=== PATIENT | male | born 1945 | race Caucasian/White ===

== ENCOUNTER 2018-09-04 16:46 | Emergency (ER) | payer MEDICARE, OTHER ==
[~2018-09-04] VITALS: Ht 185.4 cm; Wt 101.2 kg
[2018-09-04] MEDS ORDERED: CITRATE OF MAGNESIA 300ML BOTTLE PO ONE (17:15)
--- NOTE | 2018-09-04 17:38 | Diagnostic Imaging Report ---
Exam: Abdominal film Clinical History: abdominal pain Comparison: None. DISCUSSION: Frontal view of the abdomen shows a nonobstructive bowel gas pattern with mild amount of retained stool. No dilated, air-filled loops of bowel. No abnormal calcifications. No acute bone abnormality. Total hip arthroplasty. IMPRESSION: Nonobstructive bowel gas pattern. Signed by: Dr. Robinson Quiroz M.D. on 09/04/2018 5:35 PM
--- NOTE | 2018-09-04 19:00 | NUR ---
REPORT RECEIVED FROM MONTY BARR.
--- NOTE | 2018-09-04 19:08 | NUR ---
BEDSIDE BLADDER SCAN WAS PERFORMED AT THIS TIME. NOTED TO HAVE APPROX 100CC PER SONOGRAM. INFORMED SETPHANIE BRO AT THIS TIME, IBARRA BEING INSERTED AT THIS TIME BY STEPHANIE BRO.
--- NOTE | 2018-09-04 19:15 | NUR ---
700 CC OF CLEAR YELLOW URINE NOTED TO IBARRA AT THIS TIME.
[2018-09-04] MEDS ORDERED: MINERAL OIL 132 ML BTL PR ONE (19:30)
[2018-09-04] MEDS ORDERED: CITRATE OF MAGNESIA 300ML BOTTLE ONE (19:44)
--- NOTE | 2018-09-04 20:00 | NUR ---
PT REQUESTING FOOD AT THIS TIME, INFORMED THAT PER STEPHANIE BRO FOOD CAN BE GIVEN AFTER BOWEL MOVEMENT.
[2018-09-04 21:34] VITALS: BP 127/69
== END 2018-09-04 21:35 | disposition home or self-care (01) ==
LOC: ER 16:46
DX: K59.00 Constipation, unspecified (principal); R33.9 Retention of urine, unspecified; I10 Essential (primary) hypertension; I25.10 Atherosclerotic heart disease of native coronary artery without angina pectoris; I51.9 Heart disease, unspecified
CPT/HCPCS: 51700; 74018; 99283

== ENCOUNTER 2022-01-06 10:43 | Emergency (ER) | payer MEDICARE, OTHER ==
[~2022-01-06] VITALS: Ht 185.4 cm; Wt 98.9 kg
== END 2022-01-06 14:18 | disposition home or self-care (01) ==
LOC: FSED 11:00
DX: S22.41XA Multiple fractures of ribs, right side, initial encounter for closed fracture (principal); S00.83XA Contusion of other part of head, initial encounter; S60.211A Contusion of right wrist, initial encounter; S80.01XA Contusion of right knee, initial encounter; S13.4XXA Sprain of ligaments of cervical spine, initial encounter; W01.0XXA Fall on same level from slipping, tripping and stumbling without subsequent striking against object, initial encounter; Y93.01 Activity, walking, marching and hiking; Y92.89 Other specified places as the place of occurrence of the external cause; I10 Essential (primary) hypertension; E78.5 Hyperlipidemia, unspecified; K21.9 Gastro-esophageal reflux disease without esophagitis; I25.10 Atherosclerotic heart disease of native coronary artery without angina pectoris; I48.91 Unspecified atrial fibrillation; I25.2 Old myocardial infarction
CPT/HCPCS: 70450; 70486; 71250; 72125; 74176; 99283

== ENCOUNTER 2024-07-02 12:37 | Inpatient (IN) | payer MEDICARE, BC ==
[~2024-07-02] VITALS: Ht 167.6 cm; Wt 114.6 kg
[2024-07-02 13:15] LABS: BASOPHILS % 0.3 % (0.0-1.0); EOSINOPHILS % 0.3 % (0.0-6.0); HEMOGLOBIN 14.3 g/dL (14.0-18.0); LYMPHOCYTES # (AUTO) 0.8 (1.0-3.2); MEAN CORPUSCULAR HEMOGLOBIN 28.8 pg (28-32); MEAN CORPUSCULAR HGB CONC 34.9 g/dL (31-35); MEAN CORPUSCULAR VOLUME 82.5 fL (81-99); MONOCYTES # (AUTO) 0.5 (0.2-0.8); MONOCYTES % 7.9 % (4.4-11.3); NEUTROPHILS # (AUTO) 5.1 (2.1-6.9); NEUTROPHILS % 78.7 % (38.7-80.0); PLATELET COUNT 189 x10e3/uL (140-360); RED BLOOD COUNT 4.97 x10e6/uL (4.3-5.7); RED CELL DISTRIBUTION WIDTH 13.9 % (11.7-14.4); WHITE BLOOD COUNT 6.42 x10e3/uL (4.8-10.8)
[2024-07-02 13:30] LABS: INR 1.51
[2024-07-02 13:31] LABS: PARTIAL THROMBOPLASTIN TIME 41.6 seconds (23.8-35.5)
[2024-07-02 13:41] LABS: ANION GAP 16.1 mmol/L (8-16); BILIRUBIN,TOTAL 0.8 mg/dL (0.2-1.2); CALCIUM 8.3 mg/dL (8.4-10.2); CREATININE, SERUM 0.67 mg/dL (0.72-1.25); MAGNESIUM 1.7 MG/DL (1.3-2.1); POTASSIUM 4.1 mmol/L (3.5-5.1); TOTAL PROTEIN 6.1 g/dL (6.5-8.1)
[2024-07-02 13:46] LABS: TROPONIN I 0.082 ng/mL (0-0.300)
[2024-07-02] MEDS: SODIUM CHLORIDE 0.9% 500ML 500 ML IV ONE (13:49)
[2024-07-02 14:04] LABS: CLARITY,URINE SL CLOUDY (CLEAR); COLOR,URINE YELLOW (YELLOW); GLUCOSE, URINE NEGATIVE (NEGATIVE); KETONES,URINE NEGATIVE (NEGATIVE); LEUKOCYTE ESTERASE ,URINE NEGATIVE (NEGATIVE); NITRITE,URINE NEGATIVE (NEGATIVE); PH,URINE 6.5 (5 - 7); PROTEIN,URINE DIPSTICK 2+ (NEGATIVE); URINE UROBILINOGEN 4 mg/dL (0.2 - 1)
[2024-07-02 14:05] LABS: BILIRUBIN,URINE NEGATIVE (NEGATIVE)
[2024-07-02 14:13] LABS: BACTERIA,URINE MODERATE /HPF; EPITHELIAL CELLS,URINE FEW /LPF; MUCUS,URINE MODERATE; RBC,URINE 0-5 /HPF (0-5); WBC,URINE (MAN) 0-5 /HPF (0-5)
[2024-07-02 15:00] VITALS: PULSE 85; RESP 17; TEMP 98
[2024-07-02] MEDS: SODIUM CHLORIDE 0.9% 1000ML 1,000 ML IV SCH (15:32)
[2024-07-02 18:34] LABS: TROPONIN I 0.064 ng/mL (0-0.300)
[2024-07-02 18:39] VITALS: BP 98/67; O2SAT 100
[2024-07-02 18:47] VITALS: BP 98/67; O2SAT 100
[2024-07-02 19:19] VITALS: BP 148/71; PULSE 95; RESP 18; TEMP 98.5; O2SAT 95
[2024-07-02] MEDS: ONDANSETRON HCL INJ 2MG/ML 2ML 2 MG/ML VIAL IV PRN (19:52)
[2024-07-02] MEDS ORDERED: WARFARIN SODIUM2 MG PO (20:26)
[2024-07-02] MEDS ORDERED: CLONIDINE HCL0.1 MG PO (20:26)
[2024-07-02] MEDS ORDERED: CEPHALEXIN500 MG PO (20:26)
[2024-07-02] MEDS ORDERED: NEURONTIN400 MG PO (20:26)
[2024-07-02] MEDS ORDERED: LOSARTAN POTAS100 MG PO (20:26)
[2024-07-02] MEDS ORDERED: DOCUSATE SODIU100 MG PO (20:26)
[2024-07-02] MEDS ORDERED: domperidone PO (20:26)
[2024-07-02] MEDS ORDERED: AMLODIPINE BESYL5 MG PO (20:26)
[2024-07-02] MEDS ORDERED: PANTOPRAZOLE SO40 MG PO (20:26)
[2024-07-02] MEDS ORDERED: ZYRTEC10 MG PO (20:26)
[2024-07-02] MEDS ORDERED: ASPIRIN81 MG PO (20:26)
[2024-07-02] MEDS ORDERED: METOPROLOL TART25 MG PO (20:26)
[2024-07-02] MEDS ORDERED: ROSUVASTATIN CA20 MG PO (20:26)
[2024-07-02] MEDS ORDERED: WARFARIN SODIUM1 MG PO (20:26)
[2024-07-02] MEDS ORDERED: AMIODARONE HCL200 MG PO (20:26)
[2024-07-02 21:00] VITALS: BP 148/71; PULSE 95; RESP 18; TEMP 98.5; O2SAT 95
[2024-07-02] MEDS: GABAPENTIN 400 MG CAP PO SCH (22:01)
[2024-07-02] MEDS: AMLODIPINE BESYLATE 5 MG TAB PO SCH (22:01)
[2024-07-02] MEDS: CRESTOR 10MG PO SCH (22:02)
[2024-07-02] MEDS: METOPROLOL TARTRATE 25 MG TAB PO SCH (22:02)
[2024-07-02] MEDS: CLONIDINE HCL 0.1 MG TAB PO SCH (22:02)
[2024-07-02] MEDS: WARFARIN SOD 2 MG TAB PO SCH (22:03)
[2024-07-02 22:30] VITALS: BP 159/90; PULSE 102; RESP 20; TEMP 98; O2SAT 96
[2024-07-03] VITALS (9 sets, daily range): BP systolic 125–162; BP diastolic 55–83; PULSE 71–93; RESP 16–20; TEMP 97.6–98.8; O2SAT 89–95
[2024-07-03] MEDS: GUAIFENESIN/DEXTROMETHORPHAN LIQD 5 ML UDC NG PRN (05:23)
[2024-07-03 06:36] LABS: BASOPHILS % 0.5 % (0.0-1.0); EOSINOPHILS % 0.5 % (0.0-6.0); HEMATOCRIT 38.8 % (38.2-49.6); HEMOGLOBIN 13.4 g/dL (14.0-18.0); LYMPHOCYTES # (AUTO) 0.7 (1.0-3.2); MEAN CORPUSCULAR HEMOGLOBIN 28.9 pg (28-32); MEAN CORPUSCULAR HGB CONC 34.5 g/dL (31-35); MEAN CORPUSCULAR VOLUME 83.6 fL (81-99); MONOCYTES # (AUTO) 0.5 (0.2-0.8); MONOCYTES % 7.4 % (4.4-11.3); NEUTROPHILS # (AUTO) 4.9 (2.1-6.9); NEUTROPHILS % 79.8 % (38.7-80.0); PLATELET COUNT 195 x10e3/uL (140-360); RED BLOOD COUNT 4.64 x10e6/uL (4.3-5.7); RED CELL DISTRIBUTION WIDTH 13.8 % (11.7-14.4); WHITE BLOOD COUNT 6.19 x10e3/uL (4.8-10.8)
[2024-07-03 06:47] LABS: ALBUMIN 2.6 g/dL (3.5-5.0); ALBUMIN/GLOBULIN RATIO 0.9 (0.8-2.0); ANION GAP 13.1 mmol/L (8-16); BILIRUBIN,TOTAL 0.7 mg/dL (0.2-1.2); CREATININE, SERUM 0.55 mg/dL (0.72-1.25); POTASSIUM 4.1 mmol/L (3.5-5.1); TOTAL PROTEIN 5.5 g/dL (6.5-8.1)
[2024-07-03 06:54] LABS: TROPONIN I 0.16 ng/mL (0-0.300)
[2024-07-03] MEDS: ALBUTEROL/IPRATROPIUM 3 ML NEB NEB SCH (07:50)
[2024-07-03] MEDS: DOCUSATE SODIUM 100 MG CAP PO SCH (08:03)
[2024-07-03] MEDS: LORATADINE 10 MG TAB PO SCH (08:03)
[2024-07-03] MEDS: METHYLPREDNISOLONE SOD SUCC 40 MG/ML VIAL 1ML IV SCH (08:04)
[2024-07-03] MEDS: LOSARTAN POTASSIUM 100 MG TAB PO SCH (08:16)
[2024-07-03] MEDS: AMIODARONE HCL 200 MG TAB PO SCH (08:16)
[2024-07-03] MEDS: DOMPERIDONE 10 MG PO SCH (09:00)
[2024-07-03] MEDS ORDERED: SODIUM CHLORIDE 0.9% 250ML 250 ML ONE (14:56)
[2024-07-03 16:30] LABS: TROPONIN I 0.075 ng/mL (0-0.300)
[2024-07-03] MEDS: ASPIRIN 81 MG CHEW TAB PO SCH (21:42)
[2024-07-04] VITALS (20 sets, daily range): BP systolic 110–150; BP diastolic 57–102; PULSE 64–95; RESP 16–25; TEMP 97.6–98.6; O2SAT 89–98
[2024-07-04] MEDS: MAGNESIUM SULFATE 2GM/50ML 50 ML IV ONE (05:22)
[2024-07-04 06:12] LABS: BASOPHILS % 0.1 % (0.0-1.0); HEMATOCRIT 39.5 % (38.2-49.6); HEMOGLOBIN 13.5 g/dL (14.0-18.0); LYMPHOCYTES # (AUTO) 0.4 (1.0-3.2); LYMPHOCYTES % 5.4 % (18.0-39.1); MEAN CORPUSCULAR HEMOGLOBIN 28.7 pg (28-32); MEAN CORPUSCULAR HGB CONC 34.2 g/dL (31-35); MEAN CORPUSCULAR VOLUME 83.9 fL (81-99); MONOCYTES # (AUTO) 0.3 (0.2-0.8); MONOCYTES % 4.1 % (4.4-11.3); NEUTROPHILS # (AUTO) 6.1 (2.1-6.9); NEUTROPHILS % 89.5 % (38.7-80.0); PLATELET COUNT 200 x10e3/uL (140-360); RED BLOOD COUNT 4.71 x10e6/uL (4.3-5.7); RED CELL DISTRIBUTION WIDTH 13.3 % (11.7-14.4); WHITE BLOOD COUNT 6.84 x10e3/uL (4.8-10.8)
[2024-07-04 07:26] LABS: ALBUMIN 2.5 g/dL (3.5-5.0); ALBUMIN/GLOBULIN RATIO 0.9 (0.8-2.0); ANION GAP 14.3 mmol/L (8-16); BILIRUBIN,TOTAL 0.4 mg/dL (0.2-1.2); CALCIUM 7.9 mg/dL (8.4-10.2); CREATININE, SERUM 0.55 mg/dL (0.72-1.25); POTASSIUM 4.3 mmol/L (3.5-5.1); TOTAL PROTEIN 5.2 g/dL (6.5-8.1)
[2024-07-04] MEDS: MUPIROCIN 2% OINT 22 GM TUBE TOP SCH (19:30)
[2024-07-04 20:18] LABS: ABG PCO2 32 mmHg (35-45); ABG PH 7.42 (7.35-7.45)
[2024-07-04 20:19] LABS: ABG HCO3 21 mmol/L (22-26); ABG PO2 70 mmHg (80-105); ABG TCO2 22
[2024-07-04] MEDS: FUROSEMIDE INJ 10 MG/ML 2 ML VIAL IV STA (20:31)
[2024-07-04] MEDS: WARFARIN SOD 1 MG TAB PO SCH (20:32)
[2024-07-05] VITALS (19 sets, daily range): BP systolic 101–135; BP diastolic 64–86; PULSE 70–92; RESP 13–28; TEMP 98–98.7; O2SAT 91–97
[2024-07-05 04:17] LABS: CORONAVIRUS COVID-19 AG NEGATIVE (NEGATIVE); INFLUENZA A AG POSITIVE (NEGATIVE); INFLUENZA B AG NEGATIVE (NEGATIVE)
[2024-07-05 06:24] LABS: BASOPHILS % 0.2 % (0.0-1.0); HEMATOCRIT 39.1 % (38.2-49.6); HEMOGLOBIN 13.8 g/dL (14.0-18.0); LYMPHOCYTES # (AUTO) 0.5 (1.0-3.2); LYMPHOCYTES % 4.4 % (18.0-39.1); MEAN CORPUSCULAR HGB CONC 35.3 g/dL (31-35); MEAN CORPUSCULAR VOLUME 82.1 fL (81-99); MONOCYTES # (AUTO) 0.7 (0.2-0.8); MONOCYTES % 6.4 % (4.4-11.3); NEUTROPHILS # (AUTO) 9.9 (2.1-6.9); NEUTROPHILS % 88.3 % (38.7-80.0); PLATELET COUNT 229 x10e3/uL (140-360); RED BLOOD COUNT 4.76 x10e6/uL (4.3-5.7); RED CELL DISTRIBUTION WIDTH 13.4 % (11.7-14.4); WHITE BLOOD COUNT 11.26 x10e3/uL (4.8-10.8)
[2024-07-05 07:01] LABS: ALBUMIN 2.4 g/dL (3.5-5.0); ALBUMIN/GLOBULIN RATIO 0.9 (0.8-2.0); BILIRUBIN,TOTAL 0.5 mg/dL (0.2-1.2); CALCIUM 8.2 mg/dL (8.4-10.2); CREATININE, SERUM 0.54 mg/dL (0.72-1.25); MAGNESIUM 1.9 MG/DL (1.3-2.1)
[2024-07-05 07:08] LABS: INR 4.09; PROTHROMBIN TIME 41.5 seconds (11.9-14.5)
[2024-07-05] MEDS: OSELTAMIVIR PHOSPHATE 75 MG CAP PO SCH (08:50)
[2024-07-05] MEDS ORDERED: IOPAMIDOL 370 MG/ML 100 ML INFUS..BTL INJ ONE (10:22)
[2024-07-05 14:07] LABS: CALCIUM 8.6 mg/dL (8.4-10.2); CREATININE, SERUM 0.58 mg/dL (0.72-1.25)
[2024-07-06] VITALS (23 sets, daily range): BP systolic 106–161; BP diastolic 64–104; PULSE 67–95; RESP 15–27; TEMP 98.1–98.6; O2SAT 90–100
[2024-07-06 05:12] LABS: BASOPHILS % 0.2 % (0.0-1.0); HEMATOCRIT 38.1 % (38.2-49.6); HEMOGLOBIN 13.2 g/dL (14.0-18.0); LYMPHOCYTES # (AUTO) 0.5 (1.0-3.2); LYMPHOCYTES % 4.5 % (18.0-39.1); MEAN CORPUSCULAR HEMOGLOBIN 28.9 pg (28-32); MEAN CORPUSCULAR HGB CONC 34.6 g/dL (31-35); MEAN CORPUSCULAR VOLUME 83.4 fL (81-99); MONOCYTES # (AUTO) 0.6 (0.2-0.8); MONOCYTES % 5.5 % (4.4-11.3); NEUTROPHILS # (AUTO) 8.9 (2.1-6.9); NEUTROPHILS % 88.7 % (38.7-80.0); PLATELET COUNT 241 x10e3/uL (140-360); RED BLOOD COUNT 4.57 x10e6/uL (4.3-5.7); RED CELL DISTRIBUTION WIDTH 13.7 % (11.7-14.4); WHITE BLOOD COUNT 10.07 x10e3/uL (4.8-10.8)
[2024-07-06 05:41] LABS: INR 5.91; PROTHROMBIN TIME 55.3 seconds (11.9-14.5)
[2024-07-06 05:46] LABS: ALBUMIN 2.3 g/dL (3.5-5.0); ALBUMIN/GLOBULIN RATIO 0.7 (0.8-2.0); BILIRUBIN,TOTAL 0.5 mg/dL (0.2-1.2); CALCIUM 8.3 mg/dL (8.4-10.2); CREATININE, SERUM 0.57 mg/dL (0.72-1.25); TOTAL PROTEIN 5.4 g/dL (6.5-8.1)
[2024-07-06] MEDS ORDERED: PHYTONADIONE SC ONE (06:00)
[2024-07-06] MEDS ORDERED: PHYTONADIONE 10 MG/ML AMP IV ONE (06:00)
[2024-07-06] MEDS ORDERED: SODIUM CHLORIDE 0.9% SC ONE (06:00)
[2024-07-06] MEDS: PHYTONADIONE IV ONE (06:46)
[2024-07-06] MEDS: SODIUM CHLORIDE 0.9% IV ONE (06:46)
[2024-07-06] MEDS: METHYLPREDNISOLONE SOD SUCC 40 MG/ML VIAL 1ML IV SCH (09:26)
[2024-07-07] VITALS (18 sets, daily range): BP systolic 94–141; BP diastolic 63–112; PULSE 78–120; RESP 13–26; TEMP 98.1–98.7; O2SAT 84–100
[2024-07-07 06:40] LABS: BASOPHILS % 0.3 % (0.0-1.0); HEMATOCRIT 36.9 % (38.2-49.6); HEMOGLOBIN 12.5 g/dL (14.0-18.0); LYMPHOCYTES # (AUTO) 0.6 (1.0-3.2); LYMPHOCYTES % 5.8 % (18.0-39.1); MEAN CORPUSCULAR HEMOGLOBIN 28.4 pg (28-32); MEAN CORPUSCULAR HGB CONC 33.9 g/dL (31-35); MEAN CORPUSCULAR VOLUME 83.9 fL (81-99); MONOCYTES # (AUTO) 0.9 (0.2-0.8); MONOCYTES % 8.5 % (4.4-11.3); NEUTROPHILS # (AUTO) 9.1 (2.1-6.9); NEUTROPHILS % 82.8 % (38.7-80.0); PLATELET COUNT 287 x10e3/uL (140-360); RED CELL DISTRIBUTION WIDTH 13.8 % (11.7-14.4); WHITE BLOOD COUNT 10.94 x10e3/uL (4.8-10.8)
[2024-07-07 06:54] LABS: INR 1.3; PROTHROMBIN TIME 16.9 seconds (11.9-14.5)
[2024-07-07 07:08] LABS: ALBUMIN 2.2 g/dL (3.5-5.0); ALBUMIN/GLOBULIN RATIO 0.7 (0.8-2.0); ANION GAP 12.8 mmol/L (8-16); BILIRUBIN,TOTAL 0.7 mg/dL (0.2-1.2); CALCIUM 8.3 mg/dL (8.4-10.2); CREATININE, SERUM 0.55 mg/dL (0.72-1.25); POTASSIUM 3.8 mmol/L (3.5-5.1); TOTAL PROTEIN 5.4 g/dL (6.5-8.1)
[2024-07-07] MEDS: METHYLPREDNISOLONE SOD SUCC 40 MG/ML VIAL 1ML IV SCH (09:37)
[2024-07-07 12:25] LABS: ABG HCO3 21 mmol/L (22-26); ABG PCO2 32 mmHg (35-45); ABG PH 7.42 (7.35-7.45); ABG PO2 70 mmHg (80-105); ABG TCO2 22
[2024-07-08] VITALS (17 sets, daily range): BP systolic 110–143; BP diastolic 66–99; PULSE 77–105; RESP 15–28; TEMP 97.4–98.9; O2SAT 90–98
[2024-07-08 06:23] LABS: BASOPHILS % 0.4 % (0.0-1.0); HEMATOCRIT 34.1 % (38.2-49.6); HEMOGLOBIN 11.7 g/dL (14.0-18.0); LYMPHOCYTES # (AUTO) 0.7 (1.0-3.2); LYMPHOCYTES % 7.3 % (18.0-39.1); MEAN CORPUSCULAR HEMOGLOBIN 28.7 pg (28-32); MEAN CORPUSCULAR HGB CONC 34.3 g/dL (31-35); MEAN CORPUSCULAR VOLUME 83.8 fL (81-99); MONOCYTES # (AUTO) 0.8 (0.2-0.8); MONOCYTES % 8.2 % (4.4-11.3); NEUTROPHILS # (AUTO) 7.8 (2.1-6.9); PLATELET COUNT 309 x10e3/uL (140-360); RED BLOOD COUNT 4.07 x10e6/uL (4.3-5.7); WHITE BLOOD COUNT 9.71 x10e3/uL (4.8-10.8)
[2024-07-08 06:38] LABS: INR 1.16; PROTHROMBIN TIME 15.5 seconds (11.9-14.5)
[2024-07-08 06:46] LABS: ALBUMIN 2.1 g/dL (3.5-5.0); ALBUMIN/GLOBULIN RATIO 0.7 (0.8-2.0); BILIRUBIN,TOTAL 0.9 mg/dL (0.2-1.2); CALCIUM 8.2 mg/dL (8.4-10.2); CREATININE, SERUM 0.5 mg/dL (0.72-1.25); TOTAL PROTEIN 5.2 g/dL (6.5-8.1)
[2024-07-08] MEDS ORDERED: PREDNISONE 10 MG TAB PO SCH (09:00)
[2024-07-08] MEDS: PREDNISONE 10 MG TAB PO SCH (21:11)
[2024-07-09] VITALS (14 sets, daily range): BP systolic 111–151; BP diastolic 58–91; PULSE 83–115; RESP 16–27; TEMP 97.2–99.1; O2SAT 94–100
[2024-07-09] MEDS: SOD PHOSPHATE/SOD BIPHOSPHATE ENEMA 132 ML BTL PR ONE (05:06)
[2024-07-09 06:39] LABS: BASOPHILS % 0.4 % (0.0-1.0); EOSINOPHILS % 0.1 % (0.0-6.0); HEMATOCRIT 37.7 % (38.2-49.6); HEMOGLOBIN 12.6 g/dL (14.0-18.0); LYMPHOCYTES # (AUTO) 0.5 (1.0-3.2); LYMPHOCYTES % 4.4 % (18.0-39.1); MEAN CORPUSCULAR HEMOGLOBIN 28.5 pg (28-32); MEAN CORPUSCULAR HGB CONC 33.4 g/dL (31-35); MEAN CORPUSCULAR VOLUME 85.3 fL (81-99); MONOCYTES # (AUTO) 0.5 (0.2-0.8); MONOCYTES % 4.7 % (4.4-11.3); NEUTROPHILS # (AUTO) 9.6 (2.1-6.9); NEUTROPHILS % 85.9 % (38.7-80.0); PLATELET COUNT 338 x10e3/uL (140-360); RED BLOOD COUNT 4.42 x10e6/uL (4.3-5.7); WHITE BLOOD COUNT 11.21 x10e3/uL (4.8-10.8)
[2024-07-09 07:03] LABS: ALBUMIN 2.1 g/dL (3.5-5.0); ALBUMIN/GLOBULIN RATIO 0.6 (0.8-2.0); ANION GAP 13.6 mmol/L (8-16); BILIRUBIN,TOTAL 1.1 mg/dL (0.2-1.2); CALCIUM 8.2 mg/dL (8.4-10.2); CREATININE, SERUM 0.51 mg/dL (0.72-1.25); POTASSIUM 4.6 mmol/L (3.5-5.1); TOTAL PROTEIN 5.7 g/dL (6.5-8.1)
[2024-07-09] MEDS: POLYETHYLENE GLYCOL 3350 17 GM PACK PO SCH (09:23)
[2024-07-10] VITALS (16 sets, daily range): BP systolic 89–141; BP diastolic 53–91; PULSE 89–117; RESP 15–27; TEMP 97.9–98.8; O2SAT 88–100
[2024-07-10 05:21] LABS: INR 1.23; PROTHROMBIN TIME 16.2 seconds (11.9-14.5)
[2024-07-11] VITALS (11 sets, daily range): BP systolic 94–135; BP diastolic 61–115; PULSE 82–109; RESP 12–26; TEMP 98.5–99.8; O2SAT 90–100
[2024-07-11 06:34] LABS: BASOPHILS # (AUTO) 0.1 (0.0-0.1); BASOPHILS % 0.3 % (0.0-1.0); HEMATOCRIT 37.2 % (38.2-49.6); HEMOGLOBIN 12.2 g/dL (14.0-18.0); LYMPHOCYTES # (AUTO) 0.5 (1.0-3.2); LYMPHOCYTES % 3.2 % (18.0-39.1); MEAN CORPUSCULAR HEMOGLOBIN 28.7 pg (28-32); MEAN CORPUSCULAR HGB CONC 32.8 g/dL (31-35); MEAN CORPUSCULAR VOLUME 87.5 fL (81-99); MONOCYTES # (AUTO) 0.8 (0.2-0.8); PLATELET COUNT 425 x10e3/uL (140-360); RED BLOOD COUNT 4.25 x10e6/uL (4.3-5.7); RED CELL DISTRIBUTION WIDTH 14.3 % (11.7-14.4); WHITE BLOOD COUNT 16.11 x10e3/uL (4.8-10.8)
[2024-07-11 06:53] LABS: INR 1.21
[2024-07-11 07:02] LABS: ALBUMIN 2.1 g/dL (3.5-5.0); ALBUMIN/GLOBULIN RATIO 0.6 (0.8-2.0); ANION GAP 13.8 mmol/L (8-16); BILIRUBIN,TOTAL 0.9 mg/dL (0.2-1.2); CALCIUM 8.5 mg/dL (8.4-10.2); CREATININE, SERUM 0.59 mg/dL (0.72-1.25); POTASSIUM 4.8 mmol/L (3.5-5.1); TOTAL PROTEIN 5.6 g/dL (6.5-8.1)
[2024-07-11] MEDS: NYSTATIN 100,000 UNITS/GM CRM 30GM TUBE TOP SCH (15:02)
[2024-07-11] MEDS: FLUTICASONE PROPIONATE NASAL SPRAY NS SCH (20:04)
[2024-07-12] VITALS (21 sets, daily range): BP systolic 89–139; BP diastolic 39–99; PULSE 78–140; RESP 15–34; TEMP 98–99; O2SAT 85–100
[2024-07-12 06:59] LABS: BASOPHILS # (AUTO) 0.1 (0.0-0.1); BASOPHILS % 0.6 % (0.0-1.0); HEMATOCRIT 34.3 % (38.2-49.6); HEMOGLOBIN 11.5 g/dL (14.0-18.0); LYMPHOCYTES # (AUTO) 0.8 (1.0-3.2); LYMPHOCYTES % 6.1 % (18.0-39.1); MEAN CORPUSCULAR HEMOGLOBIN 28.8 pg (28-32); MEAN CORPUSCULAR HGB CONC 33.5 g/dL (31-35); MONOCYTES # (AUTO) 0.7 (0.2-0.8); MONOCYTES % 5.5 % (4.4-11.3); NEUTROPHILS % 81.6 % (38.7-80.0); PLATELET COUNT 427 x10e3/uL (140-360); RED BLOOD COUNT 3.99 x10e6/uL (4.3-5.7); RED CELL DISTRIBUTION WIDTH 14.2 % (11.7-14.4); WHITE BLOOD COUNT 12.29 x10e3/uL (4.8-10.8)
[2024-07-12 07:31] LABS: ALBUMIN 2.1 g/dL (3.5-5.0); ALBUMIN/GLOBULIN RATIO 0.7 (0.8-2.0); ANION GAP 12.5 mmol/L (8-16); BILIRUBIN,TOTAL 0.8 mg/dL (0.2-1.2); CALCIUM 8.6 mg/dL (8.4-10.2); CREATININE, SERUM 0.56 mg/dL (0.72-1.25); POTASSIUM 4.5 mmol/L (3.5-5.1); TOTAL PROTEIN 5.3 g/dL (6.5-8.1)
[2024-07-12] MEDS: ENOXAPARIN 30 MG/0.3 ML SYR SC SCH (08:40)
[2024-07-13] VITALS (24 sets, daily range): BP systolic 90–131; BP diastolic 63–88; PULSE 80–115; RESP 14–30; TEMP 98.4–98.9; O2SAT 91–100
[2024-07-13 07:08] LABS: BASOPHILS # (AUTO) 0.1 (0.0-0.1); BASOPHILS % 0.9 % (0.0-1.0); EOSINOPHILS % 0.2 % (0.0-6.0); HEMATOCRIT 33.5 % (38.2-49.6); HEMOGLOBIN 11.2 g/dL (14.0-18.0); LYMPHOCYTES # (AUTO) 0.9 (1.0-3.2); LYMPHOCYTES % 6.9 % (18.0-39.1); MEAN CORPUSCULAR HEMOGLOBIN 28.9 pg (28-32); MEAN CORPUSCULAR HGB CONC 33.4 g/dL (31-35); MEAN CORPUSCULAR VOLUME 86.3 fL (81-99); MONOCYTES # (AUTO) 0.8 (0.2-0.8); MONOCYTES % 5.9 % (4.4-11.3); NEUTROPHILS # (AUTO) 10.3 (2.1-6.9); NEUTROPHILS % 79.5 % (38.7-80.0); PLATELET COUNT 425 x10e3/uL (140-360); RED BLOOD COUNT 3.88 x10e6/uL (4.3-5.7); RED CELL DISTRIBUTION WIDTH 14.6 % (11.7-14.4); WHITE BLOOD COUNT 12.93 x10e3/uL (4.8-10.8)
[2024-07-13 07:25] LABS: INR 1.07; PROTHROMBIN TIME 14.5 seconds (11.9-14.5)
[2024-07-13 07:40] LABS: ALBUMIN/GLOBULIN RATIO 0.6 (0.8-2.0); ANION GAP 12.6 mmol/L (8-16); CREATININE, SERUM 0.52 mg/dL (0.72-1.25); POTASSIUM 4.6 mmol/L (3.5-5.1); TOTAL PROTEIN 5.3 g/dL (6.5-8.1)
[2024-07-14] VITALS (28 sets, daily range): BP systolic 87–146; BP diastolic 56–100; PULSE 81–113; RESP 14–27; TEMP 97.7–98.1; O2SAT 91–100
[2024-07-14 06:55] LABS: BASOPHILS # (AUTO) 0.1 (0.0-0.1); BASOPHILS % 0.7 % (0.0-1.0); EOSINOPHILS % 0.1 % (0.0-6.0); HEMATOCRIT 35.2 % (38.2-49.6); HEMOGLOBIN 11.7 g/dL (14.0-18.0); LYMPHOCYTES # (AUTO) 1.1 (1.0-3.2); LYMPHOCYTES % 7.8 % (18.0-39.1); MEAN CORPUSCULAR HEMOGLOBIN 28.5 pg (28-32); MEAN CORPUSCULAR HGB CONC 33.2 g/dL (31-35); MEAN CORPUSCULAR VOLUME 85.6 fL (81-99); MONOCYTES # (AUTO) 0.7 (0.2-0.8); MONOCYTES % 5.2 % (4.4-11.3); NEUTROPHILS # (AUTO) 11.4 (2.1-6.9); PLATELET COUNT 433 x10e3/uL (140-360); RED BLOOD COUNT 4.11 x10e6/uL (4.3-5.7); RED CELL DISTRIBUTION WIDTH 14.5 % (11.7-14.4); WHITE BLOOD COUNT 14.25 x10e3/uL (4.8-10.8)
[2024-07-14 07:14] LABS: INR 1.05; PROTHROMBIN TIME 14.3 seconds (11.9-14.5)
[2024-07-14 07:26] LABS: ALBUMIN 2.1 g/dL (3.5-5.0); ALBUMIN/GLOBULIN RATIO 0.6 (0.8-2.0); BILIRUBIN,TOTAL 1.2 mg/dL (0.2-1.2); CALCIUM 8.3 mg/dL (8.4-10.2); CREATININE, SERUM 0.53 mg/dL (0.72-1.25); TOTAL PROTEIN 5.5 g/dL (6.5-8.1)
[2024-07-14 12:25] LABS: BAND NEUTROPHILS % (MANUAL) 7 %; LYMPHOCYTES % (MANUAL) 9 % (19-48); METAMYELOCYTES % (MANUAL) 1 % (0-0); MONOCYTES % (MANUAL) 6 % (3.4-9.0); NEUTROPHILS % (MANUAL) 77 % (40-74); PLATELET ESTIMATE ADEQUATE; PLATELET MORPHOLOGY COMMENT NORMAL; RBC MORPHOLOGY COMMENT NORMAL
[2024-07-15] VITALS (22 sets, daily range): BP systolic 105–141; BP diastolic 72–89; PULSE 87–105; RESP 15–27; TEMP 98–98.9; O2SAT 97–100
[2024-07-15 06:13] LABS: BASOPHILS # (AUTO) 0.1 (0.0-0.1); BASOPHILS % 0.5 % (0.0-1.0); EOSINOPHILS % 0.1 % (0.0-6.0); HEMATOCRIT 33.1 % (38.2-49.6); HEMOGLOBIN 11.2 g/dL (14.0-18.0); LYMPHOCYTES # (AUTO) 1.1 (1.0-3.2); LYMPHOCYTES % 7.9 % (18.0-39.1); MEAN CORPUSCULAR HGB CONC 33.8 g/dL (31-35); MEAN CORPUSCULAR VOLUME 85.8 fL (81-99); MONOCYTES # (AUTO) 0.7 (0.2-0.8); MONOCYTES % 5.2 % (4.4-11.3); NEUTROPHILS # (AUTO) 11.1 (2.1-6.9); NEUTROPHILS % 81.1 % (38.7-80.0); PLATELET COUNT 379 x10e3/uL (140-360); RED BLOOD COUNT 3.86 x10e6/uL (4.3-5.7); RED CELL DISTRIBUTION WIDTH 14.6 % (11.7-14.4); WHITE BLOOD COUNT 13.64 x10e3/uL (4.8-10.8)
[2024-07-15 06:47] LABS: ALBUMIN 2.1 g/dL (3.5-5.0); ALBUMIN/GLOBULIN RATIO 0.7 (0.8-2.0); ANION GAP 11.2 mmol/L (8-16); BILIRUBIN,TOTAL 0.7 mg/dL (0.2-1.2); CALCIUM 8.3 mg/dL (8.4-10.2); CREATININE, SERUM 0.49 mg/dL (0.72-1.25); MAGNESIUM 1.8 MG/DL (1.3-2.1); POTASSIUM 4.2 mmol/L (3.5-5.1); TOTAL PROTEIN 5.3 g/dL (6.5-8.1)
== END 2024-07-15 17:15 | DRG 177 ==
LOC: ER 12:59 → ERHOLD 15:50 → MED/SURG3 17:30 → ICU 07-04 19:07
PROVIDERS: ADMIT Internal Medicine; ATTEND Internal Medicine
PROC: 5A09357 Assistance with Respiratory Ventilation, Less than 24 Consecutive Hours, Continuous Positive Airway Pressure (ICD-10-PCS; principal; 2024-07-04)
PROC: 4A133R1 Monitoring of Arterial Saturation, Peripheral, Percutaneous Approach (ICD-10-PCS; 2024-07-04)
DX: J69.0 Pneumonitis due to inhalation of food and vomit (principal); J96.01 Acute respiratory failure with hypoxia; E87.1 Hypo-osmolality and hyponatremia; D68.9 Coagulation defect, unspecified; J10.00 Influenza due to other identified influenza virus with unspecified type of pneumonia; E86.0 Dehydration; I48.0 Paroxysmal atrial fibrillation; E78.5 Hyperlipidemia, unspecified; J06.9 Acute upper respiratory infection, unspecified; I10 Essential (primary) hypertension; I25.10 Atherosclerotic heart disease of native coronary artery without angina pectoris; K21.9 Gastro-esophageal reflux disease without esophagitis; K59.00 Constipation, unspecified; R53.81 Other malaise; Z11.52 Encounter for screening for COVID-19; Z95.5 Presence of coronary angioplasty implant and graft; I25.2 Old myocardial infarction; Z88.7 Allergy status to serum and vaccine; Z82.49 Family history of ischemic heart disease and other diseases of the circulatory system
CPT/HCPCS: 36415; 36600; 70450; 71045; 71260; 72125; 74230; 80048; 80053; 81001; 82550; 82805; 82948; 83735; 83880; 84484; 85025; 85610; 85730; 87086; 93005; 93306; 94640; 94660; 94667; 94668; 94799; 99252; 99285; J0696; J1650; J1940; J2405; J2470; J2543; J2919; J3430; J3475; J7030; J7040; J7050; J7512; Q9967